=== PATIENT | male | born 1940 | race Caucasian/White ===

== ENCOUNTER 2018-10-25 10:09 | Day surgery (SDC) | payer MEDICARE, OTHER ==
[~2018-10-25 10:09] MED LIST: BALANCED SALT IRRIG SOLN COMB2 15 ML BOTTLE ONE; BUPIVACAINE HCL 0.75% INJ/PF (7.5 MG/1 ML) 10 ML SDV ONE; CHONDR SU A NA/HYALUR INTRAOC KIT (SURGICARE) ONE; EPINEPHRINE INJ/PF 1 MG/1 ML AMPULE ONE; LIDOCAINE 1% INJ-PF (10 MG/ML) 30 ML SDV ONE; LIDOCAINE 2%/EPINEPHRINE INJ 20 ML VIAL ONE; POVIDONE-IODINE 5% OPH PREP SOLN 30 ML ONE; TETRACAINE HCL 0.5% OPH SOLN 4 ML ONE; THROMBIN (BOVINE) TOPICAL 5000 UNIT VIAL ONE
[2018-10-25] MEDS ORDERED: MIDAZOLAM 2 MG/2 ML INJ ONE (11:32)
[2018-10-25] MEDS ORDERED: PROPOFOL INJ 200 MG/20 ML VIAL IV ONE (11:32)
[2018-10-25] MEDS: NEO/POLYMYX B SULF/DEXAMETH OPH OINTMENT 3.5 GM ONE ×2 (12:50)
--- NOTE | 2018-10-31 14:34 | [facility] DISCHARGE SUMMARY E ---
[facility] Discharge Summary NAME: BETH MIXON AGE: 78Y ADMITTED: 10/25/2018 DISCHARGED: 10/25/2018 HOSPITAL COURSE: The patient is a 78-year-old gentleman who underwent uneventful upper eyelid blepharoplasty on 10/25/2018. He will be discharged to home. He is instructed to resume preoperative medications. To use a blepharoplasty ice pack 10 minutes every hour while awake. Use Maxitrol ointment twice a day. Keep the head of his bed elevated 45 degrees and follow up in my office in 1 week. DICTATING PHYSICIAN: TIMMY PHILLIPS M.D. [id number] PHY#: [id number] ID: [id number] JOB#: [id number] ACCT: [id number] cc:TIMMY PHILLIPS M.D. >
--- NOTE | 2018-10-31 14:34 | [facility] OPERATIVE REPORT E ---
[facility] NAME: BETH MIXON AGE: 78Y DATE OF SURGERY: 10/25/2018 ROOM: PREOPERATIVE DIAGNOSIS: BILATERAL UPPER EYELID DERMATOCHALASIS WITH VISUAL FIELD LOSS. POSTOPERATIVE DIAGNOSIS: BILATERAL UPPER EYELID DERMATOCHALASIS WITH VISUAL FIELD LOSS. OPERATION: BILATERAL UPPER EYELID BLEPHAROPLASTY. INDICATIONS FOR SURGERY: HAVING TO ELEVATE LIDS MANUALLY TO SEE BETTER SURGEON: TIMMY PHILLIPS M.D. ANESTHESIA: Local with MAC. PROCEDURE: The patient was brought to the operating room and tetracaine drops were placed in the eye. The eye was sterilely prepped and draped in the usual manner. Attention was directed to both upper lids and the upper eyelid crease was marked using a marking pen. 0.3 mm forceps were used to estimate the excess upper eyelid skin to be excised. This was marked in an elliptical fashion. Local anesthesia was administered and this consisted of 3 mL of 2% Xylocaine with epinephrine mixed with 0.75% Marcaine in a 1:1 ratio. This was equally spaced through both upper lids and diffused with a Q-Tip. Attention was directed to the left upper lid, where an elliptical piece of skin was removed. Hemostasis was obtained with bipolar cautery. The orbital septum was opened and septal fat was wrapped with a Hemostat, cut and cauterized. thrombin was placed on the incision. An identical procedure was performed on the right upper lid. Wound closure was completed with 3 interrupted 6-0 silk sutures equally spaced through both upper lids, reapproximating the eyelid skin, taking a deep bite of the fascia. Wound closure was completed with running 6-0 Nylon suture. There was full closure of the eyelids at the end of the surgery, and good hemostasis. Maxitrol ointment was placed on both upper lids. The patient tolerated the procedure well and was sent to the recovery room in good condition. DICTATING PHYSICIAN: TIMMY PHILLIPS M.D. [id number] PHY#: [id number] ID: [id number] JOB#: [id number] ACCT: [id number] cc:TIMMY PHILLIPS M.D. > MTDD
== END 2018-10-25 13:48 | disposition home or self-care (01) ==
LOC: SC 10:09
PROVIDERS: ATTEND Ophthalmology
DX: H02.831 Dermatochalasis of right upper eyelid (principal); H02.834 Dermatochalasis of left upper eyelid; H53.453 Other localized visual field defect, bilateral; H04.123 Dry eye syndrome of bilateral lacrimal glands; I38 Endocarditis, valve unspecified; E78.00 Pure hypercholesterolemia, unspecified; K21.9 Gastro-esophageal reflux disease without esophagitis; Z79.899 Other long term (current) drug therapy; Z85.46 Personal history of malignant neoplasm of prostate
CPT/HCPCS: 15823; J2250; J3490 ×7; J2704; 103; J0171